=== PATIENT | female | born 1985 | race Hispanic/Latino ===

== ENCOUNTER → 2018-03-02 | Outpatient (CLI) | payer BC ==
--- NOTE | 2018-03-02 20:02 | Diagnostic Imaging Report ---
PROCEDURE:L-SPINE COMPLETE COMPARISON:None. INDICATIONS:SPONDYLOLYSIS FINDINGS: There are 5 lumbar-type vertebral bodies. The vertebral bodies are well-aligned without evidence of spondylolisthesis. There are no acute, displaced fractures, lytic or blastic lesions. No definite spondylolysis is noted in bilateral oblique views. The vertebral body heights are well-maintained. Intervertebral disc space narrowing and mild osteophyte formation at L5-S1. The sacroiliac joints are unremarkable. CONCLUSION: 1. Degenerative disc changes at L5-S1. No definite spondylolysis noted on oblique views. No spondylolisthesis. CT lumbar spine may be obtained for further evaluation, if clinically indicated. Kranthi Licona M.D. Dictated by: Kranthi Licona M.D. on 03/02/2018 at 20:04 Electronically approved by: Kranthi Licona M.D. on 03/02/2018 at 20:04
--- NOTE | 2018-03-02 20:03 | Diagnostic Imaging Report ---
PROCEDURE:SACRUM X-RAY INDICATION:Spondylolysis. COMPARISON:None. FINDINGS: Normal mineralization. No acute, displaced fracture or dislocation. Degenerative disc changes at L5-S1 with intervertebral disc space narrowing and osteophyte formation. No acute, displaced fracture or dislocation. Sacroiliac joints and sacral arches are unremarkable. No lytic or blastic lesions. Bilateral tubal ligation clips project over the pelvis. CONCLUSION: No acute abnormalities. Degenerative disc changes at L5-S1. Kranthi Licona M.D. Dictated by: Kranthi Licona M.D. on 03/02/2018 at 20:05 Electronically approved by: Kranthi Licona M.D. on 03/02/2018 at 20:05
== END ==
LOC: RAD 15:51
PROVIDERS: ATTEND Internal Medicine
DX: M43.07 Spondylolysis, lumbosacral region (principal)
CPT/HCPCS: 72110; 72220; 81025

== ENCOUNTER → 2019-06-30 | Outpatient (CLI) | payer BC ==
--- NOTE | 2019-06-30 17:08 | Diagnostic Imaging Report ---
EXAMINATION: CHEST 2 VIEWS INDICATION: Shortness of breath COMPARISON: None FINDINGS: LINES/TUBES:None LUNGS:The lungs are well-inflated. No focal consolidation or pulmonary edema. PLEURA:No pleural effusion or pneumothorax. MEDIASTINUM:The cardiomediastinal silhouette appears normal in size and shape. BONES/SOFT TISSUES:No acute osseous injury. ABDOMEN:No free air under the diaphragm. IMPRESSION: Clear lungs. Signed by: Austin Cat MD on 06/30/2019 5:05 PM
== END ==
LOC: RAD 16:13
PROVIDERS: ATTEND Family Medicine
DX: R06.00 Dyspnea, unspecified (principal)
CPT/HCPCS: 71046